=== PATIENT | male | born 1970 | race Two or more races ===

== ENCOUNTER 2021-05-28 11:05 | Emergency (ER) | payer OTHER ==
[~2021-05-28] VITALS: Ht 170.2 cm; Wt 85.2 kg
[2021-05-28 11:16] VITALS: BP 151/96
[2021-05-28] MEDS ORDERED: KETOROLAC 30 MG/1 ML ONE (11:53)
[2021-05-28] MEDS ORDERED: METHOCARBAMOL 750 MG TABLET ONE (11:53)
--- NOTE | 2021-05-28 11:58 | NUR ---
PT TO XR
[2021-05-28] MEDS ORDERED: KETOROLAC 30 MG/1 ML IM ONE (12:00)
[2021-05-28] MEDS ORDERED: METHOCARBAMOL 750 MG TABLET PO ONE (12:00)
--- NOTE | 2021-05-28 13:34 | NUR ---
Patient given discharge instructions and Rx, they have confirmed that they understand the instructions. Patient ambulatory with steady gait. NAD, all questions answered appropriately, denies additional needs at this time. No personal belongings left in room after discharge.
== END 2021-05-28 13:34 | disposition home or self-care (01) ==
LOC: ED 13:05
DX: M54.41 Lumbago with sciatica, right side (principal)
CPT/HCPCS: 72110; 96372; 99283; J1885